=== PATIENT | female | born 1965 | race Caucasian/White ===

== ENCOUNTER 2018-10-16 14:53 | Inpatient (IN) ==
[2018-10-16] MEDS ORDERED: SODIUM CHLORIDE 0.9% 500 ML IV STA (15:16)
[2018-10-16 15:52] LABS: Basophils % 0.3 % (0.0-0.8); Eosinophils % 0.2 % (0.00-10.9); Hematocrit 38.8 VOL% (35.7-47.0); Hemoglobin 12.1 GM/DL (12.0-16.0); Immature Granulocytes Absolute 0.12 #; Lymphocytes # 1.3 10*3/uL (1.4-4.0); Lymphocytes % 10.3 % (21.3-54.2); Mean Corpuscular HGB Conc 31.2 GM/DL (32-36); Mean Corpuscular Hemoglobin 28 PG (27-34); Mean Corpuscular Volume 88.8 FL (87-102); Monocytes # 0.8 10*3/uL (0.11-0.8); Monocytes % 6.4 % (1.7-12.7); Neutrophils # 9.9 10*3/uL (1.4-7.4); Neutrophils % 81.8 % (38.7-73.9); Platelet Count 203 T/CUMM (130-400); Red Blood Count 4.37 MC/CUMM (3.8-5.5); Red Cell Distribution Width 14.9 % (9.3-17.3); White Blood Count 12.1 T/CUMM (4-12)
[2018-10-16] MEDS ORDERED: OXYMETAZOLINE 0.05% NASAL SPRAY 15 ML BOTTLE ONE ×2 (16:08→17:07)
[2018-10-16 16:10] LABS: Calcium 8.4 MG/DL (8.5-10.1); Osmolality,Calculated 282.4 MOS/KG (273-304); Potassium 4.3 MMOL/L (3.5-5.1)
[2018-10-16] MEDS ORDERED: ONDANSETRON 4 MG/2 ML VIAL IV PRN ×2 (17:40→18:54)
[2018-10-16] MEDS: PROPOFOL 1,000 MG/100 ML BOTTLE IV SCH ×3 (17:50→22:22)
[2018-10-16] MEDS ORDERED: PROPOFOL 1,000 MG/100 ML BOTTLE IV ONE (17:56)
[2018-10-16] MEDS ORDERED: PROPOFOL 200 MG/20 ML VIAL IV ONE (18:00)
[2018-10-16] MEDS ORDERED: SUCCINYLCHOLINE 200 MG/10 ML VIAL ONE (18:01)
[2018-10-16] MEDS ORDERED: DEXAMETHASONE 20 MG/5 ML VIAL ONE (18:01)
[2018-10-16] MEDS ORDERED: SEVOFLURANE 1 UNIT/15 MINUTE INH ONE (18:01)
[2018-10-16] MEDS ORDERED: ONDANSETRON 4 MG/2 ML VIAL ONE (18:01)
[2018-10-16] MEDS ORDERED: LACTATED RINGERS 1,000 ML IV ONE (18:01)
[2018-10-16] MEDS ORDERED: ROCURONIUM 100 MG/10 ML VIAL IV ONE (18:01)
[2018-10-16] MEDS ORDERED: fentaNYL 100 MCG/2 ML VIAL ONE (18:01)
[2018-10-16 18:17] LABS: ABG Base Excess 0.2 MMOL/L (-2.5-2.5); ABG HCO3 24.6 MMOL/L (20-26); ABG Oxygen Saturation 98.9 % (95-100); ABG PCO2 63.8 MM HG (35-48); ABG PH 7.264 (7.35-7.45); ABG TCO2 26.1 MMOL/L (23-27); Allen Test Positive; Pt O2 Delivery Device Ventilator
[2018-10-16] MEDS ORDERED: hydrALAZINE 20 MG/1 ML VIAL ONE (18:20)
[2018-10-16] MEDS ORDERED: LABETALOL 20 MG/4 ML SYRINGE IV ONE ×2 (18:23→18:38)
[2018-10-16] MEDS ORDERED: hydrALAZINE 20 MG/1 ML VIAL IV ONE ×2 (18:23→18:38)
[2018-10-16] MEDS ORDERED: HYDROmorphone 2 MG/1 ML VIAL ONE (18:49)
[2018-10-16 18:53] LABS: Apearance,Urine CLEAR (Clear); Bacteria,Urine Occasional /HPF (Few); Bilirubin,Urine Negative (Negative); Blood, Urine Negative (Negative); Glucose,Urine (UA) Negative (Negative); Ketones,Urine Negative (Negative); Mucus,Urine Occasional /LPF (Occasional); Nitrite,Urine Negative (Negative); Protein,Urine Negative; RBC,Urine <1 /HPF (0-4); Squamous Epithelial Cell,Urine Occasional /HPF (0-10); Urine Color Yellow (Yellow); Urine Specific Gravity 1.014 (1.001-1.035); Urine Urobilinogen < 2.0 EU/DL (0.2-1.0); WBC,Urine <1 /HPF (0-6)
[2018-10-16] MEDS ORDERED: DEXTROSE 50% 25 GM/50 ML SYRINGE IV PRN (19:12)
[2018-10-16] MEDS ORDERED: GLUCAGON 1 MG VIAL IM PRN (19:13)
[2018-10-16] MEDS: HYDROmorphone 2 MG/1 ML VIAL IV PRN ×5 (19:20→22:22)
[2018-10-16] MEDS ORDERED: cloNIDine 0.3 MG/24 HR PATCH TRANSDERM SCH (19:30)
[2018-10-16 19:34] LABS: Basophils % 0.2 % (0.0-0.8); Eosinophils % 0.1 % (0.00-10.9); Hematocrit 36.4 VOL% (35.7-47.0); Hemoglobin 11.1 GM/DL (12.0-16.0); Immature Granulocytes % 1.7 %; Immature Granulocytes Absolute 0.22 #; Lymphocytes % 7.3 % (21.3-54.2); Mean Corpuscular HGB Conc 30.5 GM/DL (32-36); Mean Corpuscular Hemoglobin 28 PG (27-34); Mean Corpuscular Volume 90.3 FL (87-102); Mean Platelet Volume 10.2 FL (9.6-12.0); Monocytes # 0.4 10*3/uL (0.11-0.8); Monocytes % 2.6 % (1.7-12.7); Neutrophils # 11.7 10*3/uL (1.4-7.4); Neutrophils % 88.1 % (38.7-73.9); Platelet Count 233 T/CUMM (130-400); Red Blood Count 4.03 MC/CUMM (3.8-5.5); Red Cell Distribution Width 14.9 % (9.3-17.3); White Blood Count 13.3 T/CUMM (4-12)
[2018-10-16] MEDS: MIDAZOLAM 100 MG in SODIUM CHLORIDE 0.9% 80 ML IV PRN (19:50)
[2018-10-16 19:51] LABS: Calcium 8.1 MG/DL (8.5-10.1); Osmolality,Calculated 283.5 MOS/KG (273-304); Potassium 4.7 MMOL/L (3.5-5.1)
[2018-10-16] MEDS: DEXT 5% NACL 0.45% KCL 20 MEQ 20 MEQ/1,000 ML BAG IV SCH (20:31)
[2018-10-16] MEDS: DEXAMETHASONE 4 MG/1 ML VIAL IV SCH (22:22)
[2018-10-17] MEDS: PROPOFOL 1,000 MG/100 ML BOTTLE IV SCH ×12 (00:43→22:40)
[2018-10-17] MEDS: HYDROmorphone 2 MG/1 ML VIAL IV PRN ×5 (02:03→20:50)
[2018-10-17 04:49] LABS: ABG Base Excess 1.2 MMOL/L (-2.5-2.5); ABG HCO3 25.5 MMOL/L (20-26); ABG Oxygen Saturation 96.9 % (95-100); ABG PCO2 46.8 MM HG (35-48); ABG PO2 88.9 MM HG (80-95); ABG TCO2 24.2 MMOL/L (23-27); Allen Test Positive; Pt O2 Delivery Device Ventilator
[2018-10-17 05:40] LABS: Basophils % 0.1 % (0.0-0.8); Hematocrit 34.9 VOL% (35.7-47.0); Hemoglobin 10.8 GM/DL (12.0-16.0); Immature Granulocytes % 1.6 %; Immature Granulocytes Absolute 0.18 #; Lymphocytes # 0.9 10*3/uL (1.4-4.0); Lymphocytes % 7.9 % (21.3-54.2); Mean Corpuscular HGB Conc 30.9 GM/DL (32-36); Mean Corpuscular Hemoglobin 28 PG (27-34); Mean Corpuscular Volume 89.5 FL (87-102); Mean Platelet Volume 10.1 FL (9.6-12.0); Monocytes # 0.4 10*3/uL (0.11-0.8); Monocytes % 3.9 % (1.7-12.7); Neutrophils # 9.6 10*3/uL (1.4-7.4); Neutrophils % 86.5 % (38.7-73.9); Platelet Count 219 T/CUMM (130-400); White Blood Count 11.1 T/CUMM (4-12)
[2018-10-17] MEDS: DEXAMETHASONE 4 MG/1 ML VIAL IV SCH ×3 (05:47→22:56)
[2018-10-17] MEDS: hydrALAZINE 20 MG/1 ML VIAL IV PRN ×4 (06:14→16:30)
[2018-10-17] MEDS ORDERED: DEXT 5% NACL 0.45% KCL 20 MEQ 20 MEQ/1,000 ML BAG IV SCH (07:00)
[2018-10-17] MEDS ORDERED: FUROSEMIDE 40 MG/4 ML VIAL IV ONE (07:19)
[2018-10-17] MEDS: LABETALOL 20 MG/4 ML SYRINGE IV PRN (08:00)
[2018-10-17 08:39] LABS: Amorphous Crystals,Urine Occasional /HPF (Few); Apearance,Urine CLOUDY (Clear); Bilirubin,Urine Negative (Negative); Blood, Urine Negative (Negative); Glucose,Urine (UA) Negative (Negative); Ketones,Urine Negative (Negative); Nitrite,Urine Negative (Negative); Protein,Urine Negative; RBC,Urine 51 /HPF (0-4); Urine Color Yellow (Yellow); Urine Specific Gravity 1.024 (1.001-1.035); Urine Urobilinogen < 2.0 EU/DL (0.2-1.0); WBC,Urine 35 /HPF (0-6)
[2018-10-17] MEDS ORDERED: INFLUENZA VIRUS VACCINE 0.5 ML SYRINGE IM ONE (09:00)
[2018-10-17] MEDS: MIDAZOLAM 100 MG in SODIUM CHLORIDE 0.9% 80 ML IV PRN ×2 (09:00→22:40)
[2018-10-17] MEDS ORDERED: cloNIDine 0.3 MG/24 HR PATCH TRANSDERM SCH (11:30)
[2018-10-17] MEDS: DEXT 5% NACL 0.45% KCL 20 MEQ 20 MEQ/1,000 ML BAG IV SCH (11:43)
[2018-10-17] MEDS ORDERED: DILTIAZEM 50 MG/10 ML VIAL IV ONE (12:49)
[2018-10-17] MEDS: ALBUTEROL/IPRATROPIUM 3 ML NEB RESP TX SCH ×2 (13:31→20:12)
[2018-10-17] MEDS: niCARdipine INJ 25 MG in SODIUM CHLORIDE 0.9% 240 ML IV PRN ×2 (13:45→16:41)
[2018-10-17] MEDS: niCARdipine INJ 50 MG in SODIUM CHLORIDE 0.9% 480 ML IV PRN (18:50)
[2018-10-18] MEDS: PROPOFOL 1,000 MG/100 ML BOTTLE IV SCH ×4 (00:30→06:20)
[2018-10-18] MEDS: ALBUTEROL/IPRATROPIUM 3 ML NEB RESP TX SCH ×4 (00:41→20:50)
[2018-10-18] MEDS: HYDROmorphone 2 MG/1 ML VIAL IV PRN ×6 (00:45→19:10)
[2018-10-18] MEDS: niCARdipine INJ 50 MG in SODIUM CHLORIDE 0.9% 480 ML IV PRN ×2 (00:50→06:05)
[2018-10-18 03:47] LABS: ABG Base Excess 0.9 MMOL/L (-2.5-2.5); ABG HCO3 26.6 MMOL/L (20-26); ABG PCO2 47.1 MM HG (35-48); ABG PO2 95.5 MM HG (80-95); ABG TCO2 28.1 MMOL/L (23-27); Allen Test Positive; Pt O2 Delivery Device Ventilator
[2018-10-18 04:19] LABS: Basophils % 0.1 % (0.0-0.8); Hematocrit 35.3 VOL% (35.7-47.0); Hemoglobin 11.1 GM/DL (12.0-16.0); Immature Granulocytes % 2.3 %; Immature Granulocytes Absolute 0.36 #; Lymphocytes % 6.1 % (21.3-54.2); Mean Corpuscular HGB Conc 31.4 GM/DL (32-36); Mean Corpuscular Hemoglobin 28 PG (27-34); Mean Corpuscular Volume 89.6 FL (87-102); Mean Platelet Volume 9.9 FL (9.6-12.0); Monocytes # 1.1 10*3/uL (0.11-0.8); Monocytes % 7.2 % (1.7-12.7); NRBC # 0.02 10*3/uL; Neutrophils # 13.2 10*3/uL (1.4-7.4); Neutrophils % 84.3 % (38.7-73.9); Platelet Count 292 T/CUMM (130-400); Red Blood Count 3.94 MC/CUMM (3.8-5.5); Red Cell Distribution Width 15.6 % (9.3-17.3); White Blood Count 15.6 T/CUMM (4-12)
[2018-10-18 04:39] LABS: Calcium 7.9 MG/DL (8.5-10.1); Osmolality,Calculated 284.8 MOS/KG (273-304); Potassium 4.1 MMOL/L (3.5-5.1)
[2018-10-18] MEDS: methylPREDNISolone SOD SUC 40 MG/1 ML VIAL IV SCH ×2 (08:13→16:58)
[2018-10-18] MEDS: LABETALOL 20 MG/4 ML SYRINGE IV PRN (10:10)
[2018-10-18] MEDS ORDERED: fentaNYL 100 MCG/2 ML VIAL IV ONE (14:52)
[2018-10-18] MEDS ORDERED: HYDROmorphone PCA 30 MG/30 ML SYRINGE IV SCH (15:30)
[2018-10-18] MEDS ORDERED: FLUMAZENIL 0.5 MG/5 ML VIAL IV ONE ×3 (15:41→18:00)
[2018-10-18] MEDS ORDERED: FLUMAZENIL 1 MG/10 ML VIAL IV ONE ×2 (16:45→17:24)
[2018-10-18] MEDS ORDERED: NALOXONE 0.4 MG/ML VIAL IV PRN (19:41)
[2018-10-18] MEDS: MORPHINE PCA 30 MG/30 ML SYRINGE IV SCH (20:35)
[2018-10-19] MEDS: methylPREDNISolone SOD SUC 40 MG/1 ML VIAL IV SCH ×3 (00:55→16:56)
[2018-10-19] MEDS: ALBUTEROL/IPRATROPIUM 3 ML NEB RESP TX SCH ×4 (02:07→20:18)
[2018-10-19] MEDS ORDERED: MORPHINE PCA 30 MG/30 ML SYRINGE IV ONE (03:40)
[2018-10-19 03:57] LABS: ABG HCO3 29.1 MMOL/L (20-26); ABG Oxygen Saturation 98.5 % (95-100); ABG PCO2 41.1 MM HG (35-48); ABG PH 7.468 (7.35-7.45); ABG PO2 134.2 MM HG (80-95); ABG TCO2 30.4 MMOL/L (23-27); Allen Test Positive
[2018-10-19] MEDS: MORPHINE PCA 30 MG/30 ML SYRINGE IV SCH ×3 (04:25→19:45)
[2018-10-19 06:02] LABS: Basophils % 0.2 % (0.0-0.8); Hematocrit 32.9 VOL% (35.7-47.0); Hemoglobin 10.1 GM/DL (12.0-16.0); Immature Granulocytes % 1.9 %; Immature Granulocytes Absolute 0.27 #; Lymphocytes # 1.1 10*3/uL (1.4-4.0); Mean Corpuscular HGB Conc 30.7 GM/DL (32-36); Mean Corpuscular Hemoglobin 27 PG (27-34); Mean Corpuscular Volume 88.4 FL (87-102); Mean Platelet Volume 9.9 FL (9.6-12.0); Monocytes # 1.7 10*3/uL (0.11-0.8); Monocytes % 11.7 % (1.7-12.7); NRBC # 0.02 10*3/uL; Neutrophils % 78.2 % (38.7-73.9); Platelet Count 226 T/CUMM (130-400); Red Blood Count 3.72 MC/CUMM (3.8-5.5); White Blood Count 14.1 T/CUMM (4-12)
[2018-10-19] MEDS: niCARdipine INJ 50 MG in SODIUM CHLORIDE 0.9% 480 ML IV PRN ×2 (06:05)
[2018-10-19 06:27] LABS: Calcium 8.2 MG/DL (8.5-10.1); Osmolality,Calculated 286.3 MOS/KG (273-304); Potassium 4.1 MMOL/L (3.5-5.1)
[2018-10-19] MEDS: LABETALOL 20 MG/4 ML SYRINGE IV PRN (07:40)
[2018-10-19] MEDS: hydrALAZINE 20 MG/1 ML VIAL IV PRN (08:42)
[2018-10-19] MEDS ORDERED: TORSEMIDE 20 MG TABLET PO PRN (08:56)
[2018-10-19] MEDS ORDERED: COLESTIPOL 1 GM TABLET PO SCH ×2 (09:30→15:00)
[2018-10-19] MEDS ORDERED: niCARdipine INJ 50 MG in SODIUM CHLORIDE 0.9% 480 ML IV PRN (09:48)
[2018-10-19] MEDS: tiZANidine 4 MG TABLET PO SCH (09:52)
[2018-10-19] MEDS: oxyCODONE/ACETAMINOPHEN 5-325 MG TABLET PO SCH ×2 (09:52→16:57)
[2018-10-19] MEDS: METOPROLOL TARTRATE 25 MG TABLET PO SCH ×2 (09:52→20:22)
[2018-10-19] MEDS: CITALOPRAM 40 MG TABLET PO SCH (09:52)
[2018-10-19] MEDS: VALSARTAN/HCTZ 80-12.5 MG TABLET PO SCH (09:52)
[2018-10-19] MEDS: PRAMIPEXOLE 0.25 MG TABLET PO SCH ×2 (09:52→20:22)
[2018-10-19] MEDS: SPIRONOLACTONE 25 MG TABLET PO SCH (09:52)
[2018-10-19] MEDS: PANTOPRAZOLE 40 MG TABLET PO SCH (09:53)
[2018-10-19] MEDS: GABAPENTIN 300 MG CAPSULE PO SCH ×2 (09:53→20:22)
[2018-10-19] MEDS: prednisoLONE 15 MG/5 ML ORAL.SYR PO SCH (09:53)
[2018-10-19] MEDS: FAMOTIDINE 20 MG TABLET PO SCH ×2 (09:57→20:22)
[2018-10-19] MEDS: COLESTIPOL 1 GM TABLET PO SCH ×2 (15:12→20:22)
[2018-10-19] MEDS: MONTELUKAST 10 MG TABLET PO SCH (20:23)
[2018-10-20] MEDS: oxyCODONE/ACETAMINOPHEN 5-325 MG TABLET PO SCH ×4 (00:26→18:09)
[2018-10-20] MEDS: ALBUTEROL/IPRATROPIUM 3 ML NEB RESP TX SCH ×4 (00:40→20:09)
[2018-10-20] MEDS: methylPREDNISolone SOD SUC 40 MG/1 ML VIAL IV SCH ×3 (00:54→16:04)
[2018-10-20] MEDS: HYDROmorphone 2 MG/1 ML VIAL IV PRN (04:53)
[2018-10-20] MEDS: LABETALOL 20 MG/4 ML SYRINGE IV PRN (06:05)
[2018-10-20] MEDS: METOPROLOL TARTRATE 25 MG TABLET PO SCH ×2 (09:18→21:18)
[2018-10-20] MEDS: COLESTIPOL 1 GM TABLET PO SCH ×3 (09:18→21:19)
[2018-10-20] MEDS: PRAMIPEXOLE 0.25 MG TABLET PO SCH ×2 (09:18→21:18)
[2018-10-20] MEDS: PANTOPRAZOLE 40 MG TABLET PO SCH (09:19)
[2018-10-20] MEDS: GABAPENTIN 300 MG CAPSULE PO SCH ×2 (09:19→21:18)
[2018-10-20] MEDS: CITALOPRAM 40 MG TABLET PO SCH (09:19)
[2018-10-20] MEDS: SPIRONOLACTONE 25 MG TABLET PO SCH (09:19)
[2018-10-20] MEDS: VALSARTAN/HCTZ 80-12.5 MG TABLET PO SCH (09:19)
[2018-10-20] MEDS: tiZANidine 4 MG TABLET PO SCH (09:19)
[2018-10-20] MEDS: FAMOTIDINE 20 MG TABLET PO SCH ×2 (10:18→21:18)
[2018-10-20] MEDS: prednisoLONE 15 MG/5 ML ORAL.SYR PO SCH (10:51)
[2018-10-20] MEDS: HYDROcod/ACETAMIN 7.5-325 MG/15 ML UDCUP PO PRN ×4 (12:05→21:19)
[2018-10-20] MEDS: MONTELUKAST 10 MG TABLET PO SCH (21:18)
[2018-10-21] MEDS: ALBUTEROL/IPRATROPIUM 3 ML NEB RESP TX SCH ×3 (00:10→12:13)
[2018-10-21] MEDS: methylPREDNISolone SOD SUC 40 MG/1 ML VIAL IV SCH ×2 (01:15→10:01)
[2018-10-21] MEDS: oxyCODONE/ACETAMINOPHEN 5-325 MG TABLET PO SCH ×2 (01:15→10:01)
[2018-10-21 04:33] LABS: Basophils # 0.1 10*3/uL (0.0-0.2); Basophils % 0.5 % (0.0-0.8); Hematocrit 34.2 VOL% (35.7-47.0); Hemoglobin 10.5 GM/DL (12.0-16.0); Immature Granulocytes % 6.6 %; Immature Granulocytes Absolute 0.97 #; Lymphocytes # 1.4 10*3/uL (1.4-4.0); Lymphocytes % 9.3 % (21.3-54.2); Mean Corpuscular HGB Conc 30.7 GM/DL (32-36); Mean Corpuscular Hemoglobin 27 PG (27-34); Mean Corpuscular Volume 88.8 FL (87-102); Mean Platelet Volume 10.3 FL (9.6-12.0); Monocytes # 1.2 10*3/uL (0.11-0.8); Monocytes % 7.8 % (1.7-12.7); NRBC # 0.05 10*3/uL; Neutrophils # 11.2 10*3/uL (1.4-7.4); Neutrophils % 75.8 % (38.7-73.9); Platelet Count 244 T/CUMM (130-400); Red Blood Count 3.85 MC/CUMM (3.8-5.5); Red Cell Distribution Width 14.6 % (9.3-17.3); White Blood Count 14.8 T/CUMM (4-12)
[2018-10-21 04:57] LABS: Calcium 8.9 MG/DL (8.5-10.1); Osmolality,Calculated 285.4 MOS/KG (273-304); Potassium 4.5 MMOL/L (3.5-5.1)
[2018-10-21 05:09] LABS: Band Neutrophils 2 % (0-10); Hypochromasia 2+; Lymphocytes 8 % (20-55); Metamyelocytes 1 %; Platelet Estimate Normal; Segmented Neutrophils 80 % (50-85); Total Cells Counted 100
[2018-10-21] MEDS: CITALOPRAM 40 MG TABLET PO SCH (09:56)
[2018-10-21] MEDS: VALSARTAN/HCTZ 80-12.5 MG TABLET PO SCH (09:57)
[2018-10-21] MEDS: GABAPENTIN 300 MG CAPSULE PO SCH (09:57)
[2018-10-21] MEDS: SPIRONOLACTONE 25 MG TABLET PO SCH (09:57)
[2018-10-21] MEDS: COLESTIPOL 1 GM TABLET PO SCH (09:58)
[2018-10-21] MEDS: METOPROLOL TARTRATE 25 MG TABLET PO SCH (09:58)
[2018-10-21] MEDS: PRAMIPEXOLE 0.25 MG TABLET PO SCH (09:58)
[2018-10-21] MEDS: FAMOTIDINE 20 MG TABLET PO SCH (09:59)
[2018-10-21] MEDS: prednisoLONE 15 MG/5 ML ORAL.SYR PO SCH (09:59)
[2018-10-21] MEDS: tiZANidine 4 MG TABLET PO SCH (10:00)
[2018-10-21] MEDS: PANTOPRAZOLE 40 MG TABLET PO SCH (10:00)
[2018-10-21 16:00] VITALS: BP 146/70
== END 2018-10-21 15:20 | disposition home or self-care (01) | DRG 908 ==
LOC: EDUNIT# → EDBD → N.ED 14:53 → N.CC 16:02 → N.EDINP 17:28 → N.CC 17:52
PROVIDERS: ADMIT Otolaryngology; ATTEND Otolaryngology